=== PATIENT | female | born 1940 | race Caucasian/White ===

== ENCOUNTER 2017-05-05 19:37 | Emergency (ER) | payer MEDICARE ==
[~2017-05-05] VITALS: Ht 170.2 cm; Wt 93.9 kg
[~2017-05-05 19:37] MED LIST: ADULT LOW DOSE81 MG PO; CIPRO 500MG TA500 MG PO; Ciprofloxacin250 MG PO; DETROL LA4 MG PO; ELMIRON100 MG PO; LANOXIN0.125 MG PO; METOPROLOL 25 M25 MG PO; MOTRIN 400MG.400 MG PO; PREDNISONE 20MG20 MG PO; PYRIDIUM 200MG200 MG PO; PYRIDIUM100 MG PO; SEPTRA DS 800 M1 TAB PO; ULTRAM50 MG PO; XARELTO20 MG PO; ZOFRAN ODT4 MG PO
[2017-05-05] MEDS ORDERED: SUPER CALCIUM PO (20:10)
[2017-05-05] MEDS ORDERED: CYTOMEL PO (20:11)
[2017-05-05] MEDS ORDERED: LEADER MELATONIN5 MG PO (20:12)
[2017-05-05] MEDS ORDERED: CALCITRIOL 00.25 MCG PO (20:13)
[2017-05-05] MEDS ORDERED: PANTOPRAZOLE SO40 MG PO (20:14)
[2017-05-05] MEDS ORDERED: LEVOTHYROXIN0.137 M1 PO (20:14)
--- NOTE | 2017-05-05 20:31 | Urgent Treatment Center Report ---
History of Present Issue Date/Time Seen by Provider 05/05/171956 Visit Reason Pt arrived:Walked Presenting Problem:PT STATES HAVING MARIO ALBERTO HORSE TO OUTER LEFT THIGH ON THURSDAY. STATES GOING TO A RETREAT AND WALKING A LOT OVER THE WEEKEND WITHOUT DIFFICULTY. STATES MARIO [employer]BERTO HORSE LEFT A BRUISE TO HER THIGH THAT HAS NOW SPREAD DOWN HER LEG. STATES SWELLING TO LEG THAT BEGAN YESTERDAY. Location if Accident: Onset of symptoms date/time:/ or onset unknown for:MEDICAL HX UNKNOWN Have you (or family members/close friends) recently traveled outside the [place]? N If Yes, where/when: Have you had exposure to infectious disease within the past month? TB? Other? Specify: Patient states that she was at a walking retreat this when she began to have pain and a mario alberto horse sensation in the top of her right thigh area states that next day it looked like a bruise. Sttes that she continued to walk throughout the weekend without any pain however the bruise appeared to moving down her leg into her knee area and then to her foot and her ankle area looks a little swollen today but no redness or temperature difference anywhere in the leg ALLERGIES Coded Allergies: Sulfa (Sulfonamide Antibiotics) (06/11/16) ampicillin (06/11/16) Home Medications Active Scripts CIPROFLOXACIN HCL (Ciprofloxacin HCl) 250 MG PO BID #14 TAB Prov: 07/11/16 Reported Medications Aspirin (Adult Low Dose Aspirin EC) 81 MG PO DAILY DIGOXIN (Digox) 0.125 MG PO DAILY Rivaroxaban (Xarelto) 20 MG PO DAILY Metoprolol Tartrate (Metoprolol 25MG) 12.5 MG PO BID History Medical History General CAD? No Angina: No [place]: No Hypertension? Yes Hyperlipidemia? No CHF? No DVT? No PE? No COPD? No Asthma? No Anemia? No GERD? No Gastric ulcers? No GI Bleed? No Hernia? No Thyroid Problems? No Hypothyroidism? No CVA? No Seizures? No Diabetes? No Renal Insuffiency? No UTI? No Stones? No BPH? No GB Disease: Yes Nephritic Syndrome? No Asplenia? No Hepatitis? No Sickle Cell Disease? No Arthritis? No Migraines? No Cataracts? No Glaucoma? No MRSA? No HIV? No TB? No Anxiety? No Depression? No Cancer? No More? Yes Additional hx: AFIB, CYSTITIS Immunization HX DT/Tetanus > 10 Years Ago Flu Refused Pneumonia Received In Past Surgical Hx Previous Surgery?Y GALL BLADDER Appendix RIGHT KNEE REPLACEMENT LEFT KNEE REPLACEMENT Family History Family HX Diabetes Yes CAD Yes Hypertension Yes Hyperlipidemia Yes Cancer Yes TB No Social History Smoking Hx Smoker: Never Smoker Tobacco: No Alcohol Alcohol: No Review of Systems All Other Systems Reviewed and Negative Physical Exam Vital Signs Vital Signs Date Time Temp Pulse Resp B/P Pulse O2 O2 Flow FiO2 Ox Delivery Rate 05/05 1947 99.4 79 20 128/67 95 General Appearance normal appearance, WD/WN, no apparent distress Respiratory Status Yes: trachea midline, chest symmetrical, non tender chest. No: respiratory distress. Cardiovascular normal exam, regular rate/rhythm, no peripheral edema, no gallop Extremities purplish looking contusion noted on right upper thigh area, knee and lower calf and foot Patient states that bruising has traveled down the leg and denies injury Has history of varicose veins and spider veins. denies difficulty walking and thin shiny skin noted on lower extremities. 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 No Departure Departure Time of Disposition 2024 Disposition DC Home or Self Care(routine) Clinical Impression Primary Impression: Hematoma Condition STABLE Referrals Ernesto Garcia MD (Family): Tomorrow-Call Office Patient Instructions DI for Hematoma (Bruise) Additional Instructions Call family doctor in the morning and see him tomorrow If you began to have pain, redness, change of temp, swelling or any changes tonight return immediately to the ER Return if needed Discharge Counseling Counseled pt/family regarding diagnosis, home care, follow up needs Comments Patient given out pateint order for venous doppler and advised to see family doctor first thing in the morning. at 2030
[2017-05-05 20:32] VITALS: BP 128/67
--- OUTSIDE RECORDS SUMMARY | 2017-05-08 17:37 | External Medical Summary Rpt ---
Author Author SUMMER Villagomez, [employer] Organization [employer] Address Unknown Phone Unavailable Results CBC W Auto Differential panel in Blood Observa Value Referen Units Interpr Notes Date tion ce etation Range Basophils 0 - 0.2 K/MM3 Normal No May 07 inform2016 [#/volume on in 10:55 AM ] in source Blood by data Automated count Basophils 0.1 - 2.0 % Normal No May 07 / inform2016 leukocyte on in 10:55 AM s in source Blood by data Automated count Eosinophi 0.0 - 0.4 K/mm3 Normal No May 07 ls inform2016 [#/volume on in 10:55 AM ] in source Blood by data Automated count Eosinophi 0.1 - % Normal No May 07 ls/100 12.0 inform2016 leukocyte on in 10:55 AM s in source Blood by data Automated count Granulocy 1.8 - 7.8 K/mm3 Normal No May 07 mateo 2016 [#/volume on in 10:55 AM ] in source Blood by data Automated count Granulocy 37.0 - % Normal No May 07 mateo/100 80.0 2016 leukocyte on in 10:55 AM s in source Blood by data Automated count Hematocri 37.0 - % Normal No May 07 t [Volume 47.0 2016 on in 10:55 AM Fraction] source of Blood data Hemoglobi 12.2 - g/dL No No May 07 n 16.2 informati informati 2016 [Mass/vol on in on in 10:55 AM ume] in source source Blood data data Lymphocyt 0.7 - 4.5 K/mm3 Low No May 07 es inform2016 [#/volume on in 10:55 AM ] in source Unspecifi data ed specimen by Automated count Lymphocyt 10 - 50.0 % Normal No May 07 es inform2016 [#/volume on in 10:55 AM ] in source Unspecifi data ed specimen by Automated count Erythrocy 27 - 31.2 pg High No May 07 te mean informati 2017 corpuscul on in 10:55 AM ar source hemoglobi data n [Entitic mass] Erythrocy 31.8 - g/dl Normal May 07 te mean 35.4 2016 corpuscul on in 10:55 AM ar source hemoglobi data n concentra tion [Mass/vol ume] by Automated count Erythrocy 82.2 - fl High May 07 te mean 97.8 2016 corpuscul on in 10:55 AM ar volume source [Entitic data volume] by Automated count Monocytes 0.1 - 1.0 K/mm3 Normal No May 072016 [#/volume on in 10:55 AM ] in source Blood by data Automated count Monocytes 1.7 - 9.3 % Normal No May 07 /100 2016 leukocyte on in 10:55 AM s in source Blood by data Automated count Platelet 7.4 - fl High May 07 mean 10.4 2016 volume on in 10:55 AM [Entitic source volume] data in Blood by Automated count Platelets 142 - 424 K/mm3 Low No May 072016 [#/volume on in 10:55 AM ] in source Blood data Erythrocy 4.2 - 5.4 M/mm3 Low No May 07 mateo 2016 [#/volume on in 10:55 AM ] in source Amniotic data fluid Erythrocy 11.5 - % Normal May 07 te 17.5 2016 distribut on in 10:55 AM ion width source [Entitic data volume] by Automated count Leukocyte 4.8 - K/MM3 Low No May 07 s 10.8 2016 [#/volume on in 10:55 AM ] in source Blood data Basic metabolic panel in Blood Observa Value Referen Units Interpr Notes Date tion ce etation Range Urea 7 - 18 mg/dL Normal May 07 nitrogen 2016 [Mass/vol on in 10:55 AM ume] in source Serum or data Plasma Calcium 8.5 - mg/dL Normal No May 07 [Mass/vol 10.1 2016 ume] in on in 10:55 AM Serum or source Plasma data Chloride 98 - 107 mmoL/L High No May 07 [Moles/vo 2016 lume] in on in 10:55 AM Serum or source Plasma data Carbon 21.0 - mmoL/L Normal May 07 dioxide, 32.0 informati 2016 total on in 10:55 AM [Moles/vo source lume] in data Serum or Plasma Creatinin 0.55 - mg/dL Normal No May 07 e 1.02 inform2016 [Mass/vol on in 10:55 AM ume] in source Serum or data Plasma Creatinin 50 - 200 ML/MIN Normal No May 07 e renal informati 2016 clearance on in 10:55 AM source predicted data by Cockcroft -Gault formula Estimated 59- ML/MIN No REFERENCE May 07 informati RANGE: 2017 glomerula on in >60 10:55 AM r source ML/MIN/1. filtratio data 73 SQUARE n rate METERSIf (GF this patient is -A merican, then multiply theresult by 1.210. Glucose 74 - 106 mg/dL High No May 07 [Mass/vol informati 2016 ume] in on in 10:55 AM Serum or source Plasma data Potassium 3.5 - 5.1 mmoL/L Normal No May 072016 [Moles/vo on in 10:55 AM lume] in source Serum or data Plasma Sodium 136 - 145 mmoL/L Normal No May 07 [Moles/vo informati 2016 lume] in on in 10:55 AM Serum or source Plasma data
--- OUTSIDE RECORDS SUMMARY | 2017-05-08 17:37 | External Medical Summary Rpt ---
Demographics Preferred Language Faroese Marital Status Unknown Yazidism Affiliation Unknown Race Unknown Ethnic Group Unknown Author Author , [employer] Address Unknown Phone Immunization Unable to retrieve immunization data due to connection failure with Immunization Registry. Please try again later.
--- OUTSIDE RECORDS SUMMARY | 2017-05-08 17:37 | External Medical Summary Rpt ---
Author Author , [employer] Address Unknown Phone [email or web address] Support Name Relationship Address Phone BACK, Next Of Kin [address] [phone] [facility] Purpose Continuity of Care Document - 08-22-2013 through 2016 Problems Code Diagnosis DOS Provider Status E04.1 NONTOXIC SINGLE THYROID NODULE Allergies, Adverse Reactions, Alerts Type Drug Allergy Adverse Reaction to Substance Substance Reaction Severity Ampicillin I-HIVES Intermediate Medications Na ND Rx Da Fi Fi Am Da Di Ph RX Ph St me C No te ll ll ou ys ag ar # ys at rm s nt no ma ic us Or Da si cy ia de te s n re d Sa 63 11 0 No li 80 -1 ne 70 8- Lo 10 20 ng Fl 07 13 er us 5 h Ac 10 ti ML ve Sy ri ng e KE 00 11 0 No TO 40 -1 RO 93 8- Lo LA 79 20 ng C 50 13 er 30 1 Ac MG ti /M ve L AL AC 51 11 0 No ET 07 -1 AM 90 8- Lo IN 16 20 ng OP 19 13 er HE 9H N Ac W/ ti CO ve DE IN E #3 TA K CE 00 11 0 No FT 40 -1 RI 97 8- Lo AX 33 20 ng ON 30 13 er E 4 1 Ac GM ti ve AL SO 00 11 0 No DI 40 -1 UM 97 8- Lo 10 20 ng CH 16 13 er LO 6 RI Ac DE ti ve 0. 9% SO LN Vital Signs 08-22-2013 05:43 Name Value Interpretat Reference Comment ion Range BP 79 mm[Hg] Diastolic BP Systolic 144 mm[Hg] Heart 68 /min Rate/Pulse O2% 96 % Respiratory 20 /min Rate 08-22-2013 05:11 Name Value Interpretat Reference Comment ion Range BP 73 mm[Hg] Diastolic BP Systolic 146 mm[Hg] Heart 59 /min Rate/Pulse O2% 97 % Respiratory 20 /min Rate Results Labs Lab Lab Date Result Refere Interp Status Commen Order Detail nces retati t Range on Phosphate SerPl-mCnc (03-30-2017 13:12) Phospha 03-30-2 3.5 2.5-4.5 complet te 017 mg/dL ed SerPl-m 13:12 Cnc Ca-I SerPl ISE-sCnc (03-30-2017 13:12) Ca-I 03-30-2 5.0 4.6-5.3 complet SerPl 017 mg/dL ed ISE-sCn 13:12 c Ca-I SerPl ISE-sCnc (03-06-2017 14:39) Ca-I --2 4.5 4.6-5.1 complet SerPl 017 mg/dL ed ISE-sCn 14:39 c Phosphate SerPl-mCnc (03-06-2017 04:08) Phospha --2 3.7 2.5-4.5 complet te 017 mg/dL ed SerPl-m 04:08 Cnc Ca-I SerPl ISE-sCnc (03-06-2017 04:08) Ca-I --2 4.3 4.6-5.1 complet SerPl 017 mg/dL ed ISE-sCn 04:08 c Magnesium SerPl-mCnc (03-06-2017 04:08) Magnesi 03-06-2 2.0 1.9-2.4 complet um 017 mg/dL ed SerPl-m 04:08 Cnc Phosphate SerPl-mCnc (03-05-2017 16:43) Phospha 03-05-2 3.7 2.5-4.5 complet te 017 mg/dL ed SerPl-m 16:43 Cnc Magnesium SerPl-mCnc (03-05-2017 16:43) Magnesi --2 1.8 1.9-2.4 complet um 017 mg/dL ed SerPl-m 16:43 Cnc Ca-I SerPl ISE-sCnc (03-05-2017 16:43) Ca-I 06--2 4.4 4.6-5.1 complet SerPl 017 mg/dL ed ISE-sCn 16:43 c BASIC METABOLIC PANEL (08-22-2013 05:05) Glucose 110 74-106 complet 013 mg/dL ed Bld-mCn 05:05 c BUN 11-18-2 17 7-18 complet Bld-mCn 013 mg/dL ed c 05:05 Creat 11-18-2 1.0 0.6-1.0 complet SerPl-m 013 mg/dL ed Cnc 05:05 ESTIMAT 11-18-2 74 50-200 complet ED 013 ML/MIN ed CREATIN 05:05 INE CLEARAN CE GFR 11-18-2 55 59- complet (ESTIMA 013 ML/MIN ed FORTINO) 05:05 Sodium 11-18-2 141 136-145 complet SerPl-s 013 mmoL/L ed Cnc 05:05 Potassi 11-18-2 4.1 3.5-5.1 complet um 013 mmoL/L ed SerPl-s 05:05 Cnc Chlorid 11-18-2 104 98-107 complet e 013 mmoL/L ed SerPl-s 05:05 Cnc CO2 11-18-2 29 21.0-32 complet SerPl-s 013 mmoL/L .0 ed Cnc 05:05 Calcium 11-18-2 8.9 8.5-10. complet 013 mg/dL 1 ed SerPl-m 05:05 Cnc CBC with AUTO DIFF (08-22-2013 05:05) WBC # 11-18-2 9.1 4.8-10. complet Bld 013 K/MM3 8 ed Auto 05:05 RBC # 11-18-2 4.52 4.2-5.4 complet Bld 013 M/mm3 ed Auto 05:05 Hgb 11-18-2 15.5 12.2-16 complet Bld-mCn 013 g/dL .2 ed c 05:05 Hct Fr 11-18-2 44.4 % 37.0-47 complet Bld 013 .0 ed 05:05 MCV RBC 11-18-2 98.3 fl 82.2-97 complet 013 .8 ed 05:05 MCH RBC 11-18-2 34.3 pg 27-31.2 complet Qn 013 ed Auto 05:05 MEAN 11-18-2 34.9 31.8-35 complet CORPUSC 013 g/dl .4 ed ULAR 05:05 HGB CONC RDW RBC 11-18-2 14.6 % 11.5-17 complet Auto 013 .5 ed 05:05 Platele 11-18-2 119 142-424 complet t Bld 013 K/mm3 ed Ql 05:05 Manual MEAN 11-18-2 8.7 fl 7.4-10. complet PLATELE 013 4 ed T 05:05 VOLUME Granulo 11-18-2 78.8 % 37.0-80 complet cytes 013 .0 ed Fr Bld 05:05 Auto LYMPH % 11-18-2 13.3 % 10-50.0 complet 013 ed 05:05 Monocyt 11-18-2 6.0 % 1.7-9.3 complet es Fr 013 ed Bld 05:05 Auto Eosinop 11-18-2 1.6 % 0.1-12. complet hil Fr 013 0 ed Bld 05:05 Auto Basophi 11-18-2 0.4 % 0.1-2.0 complet ls Fr 013 ed Bld 05:05 Auto Granulo 11-18-2 7.2 1.8-7.8 complet cytes # 013 K/mm3 ed Bld 05:05 Auto Lymphoc 11-18-2 1.2 0.7-4.5 complet ytes Fr 013 K/mm3 ed Bld 05:05 Auto Monocyt 11-18-2 0.5 0.1-1.0 complet es # 013 K/mm3 ed Bld 05:05 Auto Eosinop 11-18-2 0.1 0.0-0.4 complet hil # 013 K/mm3 ed Bld 05:05 Auto Basophi 11-18-2 0.0 0-0.2 complet ls # 013 K/MM3 ed Bld 05:05 Auto URINALYSIS/COMPLETE (08-22-2013 04:35) URINE 11-18-2 ORANGE YELLOW complet COLOR 013 ed 04:35 URINE 11-18-2 CLOUDY CLEAR complet APPEARA 013 ed NCE 04:35 URINE 11-18-2 TRACE NEG complet GLUCOSE 013 ed - 04:35 DIPSTIC K URINE 11-18-2 NEGATIV NEG complet BILIRUB 013 E ed IN - 04:35 DIPSTIC K URINE 11-18-2 NEGATIV NEG complet KETONE 013 E mg/dL ed 04:35 URINE 11-18-2 1.010 1.005-1 complet SPECIFI 013 UNK .030 ed C 04:35 GRAVITY URINE 11-18-2 2+ NEG complet BLOOD 013 ed 04:35 URINE 11-18-2 7.0 UNK 5.0-8.5 complet PH 013 ed 04:35 URINE 18-2 2+ NEG complet PROTEIN 013 mg/dL ed - 04:35 DIPSTIC K URINE -18-2 2.0 NEG complet UROBILI 013 E.U./dL ed NOGEN - 04:35 DIPSTIC K URINE 18-2 POSITIV NEG complet NITRATE 013 E ed - 04:35 DIPSTIC K URINE 08-22-2 3+ NEG complet LEUK 013 ed ESTERAS 04:35 E URINE 08-22-2 10-20 0 complet RBC 013 rbc/hpf ed 04:35 URINE 18-2 TNTC O complet WBC 013 wbc/hpf ed 04:35 Encounters Encounter Start End Date Code Location Performer Type Date Emergency KAI Weaver MD (ER) 3 04:42 3 05:44 [facility]
--- OUTSIDE RECORDS SUMMARY | 2017-05-08 17:37 | External Medical Summary Rpt ---
Author Author , [employer] Address Unknown Phone [email or web address] Name Relationship Address Phone BACK, Next Of Kin [address] [phone] [facility] Purpose Continuity of Care Document - 08-22-2013 [...] Weaver MD (ER) 3 04:42 3 05:44 [facility]
--- OUTSIDE RECORDS SUMMARY | 2017-05-08 17:37 | External Medical Summary Rpt ---
Demographics Preferred Language Latvian Marital Status Unknown Rastafari Affiliation Unknown Race Unknown Ethnic Group Unknown Author Author , [employer] Address Unknown Phone Immunization Unable to retrieve immunization data due to connection failure with Immunization Registry. Please try again later.
[2017-05-09] MEDS ORDERED: TUMS 400MG TAB400 MG PO (21:54)
[2017-05-10] MEDS ORDERED: KEFLEX500 M1 PO (01:35)
== END 2017-05-05 20:33 | disposition home or self-care (01) ==
LOC: UTC 19:37
DX: M79.651 Pain in right thigh (principal); I10 Essential (primary) hypertension

== ENCOUNTER → 2017-09-09 | Outpatient (CLI) | payer MEDICARE ==
[~2017-09-09] MED LIST changes: +CALCITRIOL 00.25 MCG PO; +CYTOMEL PO; +KEFLEX500 M1 PO; +LEADER MELATONIN5 MG PO; +LEVOTHYROXIN0.137 M1 PO; +PANTOPRAZOLE SO40 MG PO; +SUPER CALCIUM PO; +TUMS 400MG TAB400 MG PO
--- NOTE | 2017-09-11 21:08 | RADIOLOGY REPORT PS360 ---
DIG MAMM-SCREEN OMI W/CAD CAD Screening COMPARISON: Digital mammograms 04/15/2016 and 08/16/2014 INDICATION: There is no personal or family history of breast cancer TECHNIQUE: Standard CC and MLO images were obtained. R2 CAD reviewed. FINDINGS: Diffuse fibroglandular densities are seen throughout both breasts. Again noted are multiple benign-appearing micro and macrocalcifications in each breast. There is no suspicious lesion and there are no suspicious microcalcifications. IMPRESSION: Stable exam with no suspicious lesion seen recommend yearly follow-up BI-RADS CATEGORY: 2_Benign RECOMMENDED FOLLOWUP: 12M 12 MONTH FOLLOW-UP (A letter has been sent to the patient regarding results of the study.)
== END ==
LOC: RAD 15:59
DX: Z12.31 Encounter for screening mammogram for malignant neoplasm of breast (principal)
CPT/HCPCS: G0202